=== PATIENT | female | born 1950 | race Caucasian/White ===

== ENCOUNTER 2021-06-12 13:50 | Emergency (ER) | payer MEDICARE, MEDICAID ==
[2021-06-12 14:26] LABS: #Eosinphils 0.1 10x3/uL (0.0-0.5); #Monocytes 0.9 10x3/uL (0.0-1.1); #Neutrophils 5.2 10x3/uL (1.5-8.4); %Basophils 0.1 % (0.0-2.0); %Eosinophils 1.2 % (0.0-6.0); %Lymphocytes 15.9 % (18.0-47.0); %Monocytes 11.9 % (0.0-10.0); %Neutrophils 70.6 % (40.0-75.0); Hemoglobin 10.7 g/dL (12.0-15.5); Mean Corpuscular HGB CONC 37.2 g/dL (32.0-36.0); Mean Corpuscular Hemoglobin 31.3 pg (27.0-33.0); Mean Corpuscular Volume 84.2 fl (81.6-98.3); Mean Platelet Volume 8.1 fl (7.4-10.4); Platelet Count 304 10x3/uL (150-450); RBC Distribution Width 11.9 % (11.5-14.5); Red Blood Cell (RBC) Count 3.42 10x6/uL (3.90-5.03); White Blood Cell (WBC) Count 7.3 10x3/uL (3.5-10.5)
[2021-06-12 14:38] LABS: ALT (SGPT) 18 U/L (8-55); AST (SGOT) 21 U/L (5-34); Albumin 3.9 g/dL (3.4-4.8); Alkaline Phosphatase 79 U/L (40-110); Anion Gap 12 mmol/L (10-20); BUN (Urea Nitrogen) 8 mg/dL (9.8-20.1); Bilirubin, Total 0.4 mg/dL (0.2-1.2); CK (CPK) 52 U/L (29-168); Calc. Creatinine Clearance 0 mL/min (70-130); Carbon Dioxide 22 mmol/L (23-31); Chloride 93 mmol/L (98-107); Globulin 2.2 g/dL (2.4-3.5); Glucose 127 mg/dL (83-110); Protein, Total 6.1 g/dL (5.8-8.1); Sodium 125 mmol/L (136-145)
[2021-06-12] MEDS ORDERED: Morphine 4 MG/ML VIAL ONE ×2 (14:41→20:31)
[2021-06-12] MEDS ORDERED: Ondansetron PF 4 MG/2 ML Vial ONE (14:41)
[2021-06-12] MEDS ORDERED: Boostrix 0.5 ML (Tdap) VIAL ONE (14:41)
[2021-06-12] MEDS ORDERED: Lidocaine 1% w/Epinephrine 1:100K 20 ML VIAL ONE (14:44)
[2021-06-12 14:54] LABS: Potassium 2.2 mmol/L (3.5-5.1)
[2021-06-12] MEDS ORDERED: Potassium Chloride 20 MEQ/100 ML PREMIX BAG ONE (15:51)
[2021-06-12 16:38] LABS: Bilirubin Neg (Negative); Blood, Urine 10 (Negative); Clarity Clear (Clear); Glucose, Urine (Dipstick) Normal (Negative); Ketone, Urine Negative (Negative); Leukocyte 500 (Negative); Nitrite Negative (Negative); Protein, Urine (Dipstick) 15 mg/dl (Neg-Trace); Urobilinogen Normal mg/dL (Less than 2); pH, Urine 6.5 (5.0-9.0)
[2021-06-12 16:44] LABS: SARS-CoV-2 NAA Rapid Test Not Detected (NotDetected)
[2021-06-12 16:48] LABS: RBC/HPF 0-3 HPF (0-3); Squamous Epithelial 0-3 HPF (0-3); WBC/HPF 21-50 HPF (0-3)
[2021-06-12 16:49] LABS: Bacteria/HPF 1+ HPF (None Seen)
[2021-06-12] MEDS ORDERED: Potassium Chloride 40 MEQ in Premix Bag 1 BAG IVPB SCH (21:00)
== END 2021-06-12 21:32 | disposition short-term general hospital (02) ==
LOC: CSHERS 13:50
DX: S01.81XA Laceration without foreign body of other part of head, initial encounter (principal); S06.2X0A Diffuse traumatic brain injury without loss of consciousness, initial encounter; E87.6 Hypokalemia; E87.1 Hypo-osmolality and hyponatremia; N39.0 Urinary tract infection, site not specified; I44.0 Atrioventricular block, first degree; I10 Essential (primary) hypertension; I25.10 Atherosclerotic heart disease of native coronary artery without angina pectoris; E78.5 Hyperlipidemia, unspecified; G93.41 Metabolic encephalopathy; W19.XXXA Unspecified fall, initial encounter; Z20.822 Contact with and (suspected) exposure to COVID-19; Z79.899 Other long term (current) drug therapy; Z23 Encounter for immunization
CPT/HCPCS: 70450; 70486; 71045; 72125; 73564; 80053; 82550; 84484; 85025; 90715; 93005; U0002; 12013; 36415; 81003; 81015; 90471; 96365; 96366; 96375; 96376; J2270; J2405; J3480

== ENCOUNTER 2021-07-22 03:35 | Observation (INO) | payer MEDICARE, MEDICAID ==
[2021-07-22 04:44] LABS: Actual Bicarbonate (HCO3v) 19 mEq/L (22-28); Base Excess -6.3 mEq/L (-2.0 to +3.0); Calcium, Ionized (venous) 1.17 mmol/L (1.16-1.32); Chloride (VBG) 103 mmol/L (98-106); Hemoglobin (Hb) 11.8 g/dL (11.7-16.1); Potassium (VBG) 3.48 mmol/L (3.70-5.30); Puncture Site Other Site; Sodium 131.8 mmol/L (133-146); pH (venous) 7.34 (7.32-7.43)
[2021-07-22 05:02] LABS: ALT (SGPT) 11 U/L (8-55); AST (SGOT) 15 U/L (5-34); Alkaline Phosphatase 68 U/L (40-110); Anion Gap 12 mmol/L (10-20); BUN (Urea Nitrogen) 8 mg/dL (9.8-20.1); Bilirubin, Total 0.5 mg/dL (0.2-1.2); Calc. Creatinine Clearance 0 mL/min (70-130); Calcium 9.1 mg/dL (7.8-10.44); Carbon Dioxide 19 mmol/L (23-31); Chloride 105 mmol/L (98-107); Globulin 2.4 g/dL (2.4-3.5); Glucose 116 mg/dL (83-110); Potassium 3.6 mmol/L (3.5-5.1); Protein, Total 6.4 g/dL (5.8-8.1); Sodium 132 mmol/L (136-145)
[2021-07-22 05:07] LABS: #Eosinphils 0.1 10x3/uL (0.0-0.5); #Monocytes 0.3 10x3/uL (0.0-1.1); #Neutrophils 4.8 10x3/uL (1.5-8.4); %Basophils 0.3 % (0.0-2.0); %Eosinophils 2.3 % (0.0-6.0); %Lymphocytes 11.7 % (18.0-47.0); %Monocytes 5.4 % (0.0-10.0); %Neutrophils 80.1 % (40.0-75.0); Hemoglobin 10.5 g/dL (12.0-15.5); Mean Corpuscular HGB CONC 32.9 g/dL (32.0-36.0); Mean Corpuscular Hemoglobin 31.2 pg (27.0-33.0); Mean Corpuscular Volume 94.7 fl (81.6-98.3); Platelet Count 262 10x3/uL (150-450); RBC Distribution Width 13.3 % (11.5-14.5); Red Blood Cell (RBC) Count 3.37 10x6/uL (3.90-5.03)
[2021-07-22 05:22] LABS: Bilirubin 1+ (Negative); Blood, Urine 25 (Negative); Clarity Cloudy (Clear); Glucose, Urine (Dipstick) Normal (Negative); Ketone, Urine Negative (Negative); Leukocyte 500 (Negative); Nitrite Negative (Negative); Protein, Urine (Dipstick) 30 mg/dl (Neg-Trace); Specific Gravity, Urine 1.025 (1.002-1.036); Urobilinogen Normal mg/dL (Less than 2)
[2021-07-22 05:28] LABS: WBC/HPF 21-50 HPF (0-3)
[2021-07-22 05:29] LABS: Bacteria/HPF 2+ HPF (None Seen); Yeast-Budding Rare HPF (None Seen)
[2021-07-22 05:31] LABS: Mucous/LPF 2+ LPF (<2+); Transitional Epithelial 0-3 HPF (None Seen)
[2021-07-22] MEDS ORDERED: Calcium Carbonate 500 MG ChewTAB PO PRN (05:33)
[2021-07-22] MEDS ORDERED: Senokot S 8.6-50 MG TAB PO PRN (05:33)
[2021-07-22] MEDS ORDERED: Ondansetron PF 4 MG/2 ML Vial IVP PRN (05:33)
[2021-07-22] MEDS ORDERED: Acetaminophen 325 MG TAB PO PRN (05:33)
[2021-07-22] MEDS ORDERED: hydrALAZINE 20 MG/ML VIAL SLOW IVP PRN (05:33)
[2021-07-22] MEDS ORDERED: traMADol HCl 50 MG TAB PO PRN (05:38)
[2021-07-22] MEDS ORDERED: Sodium Chloride 0.9% 1,000 ML IV SCH (05:45)
[2021-07-22] MEDS ORDERED: Adenosine 6 MG/2 ML VIAL ONE (05:53)
[2021-07-22] MEDS ORDERED: Metoprolol Tartrate 25 MG TAB ONE (05:58)
[2021-07-22] MEDS ORDERED: Potassium Chloride 20 MEQ TAB ONE (05:59)
[2021-07-22 06:13] LABS: SARS-CoV-2 NAA Rapid Test Not Detected (NotDetected)
[2021-07-22] MEDS ORDERED: cefTRIAXone\\ROCEPHIN 500 MG VIAL ONE (06:28)
[2021-07-22 06:29] LABS: Phosphorus 3.9 mg/dL (2.3-4.7)
[2021-07-22] MEDS ORDERED: cefTRIAXone\\ROCEPHIN 2 GM VIAL ONE (06:29)
[2021-07-22 06:35] LABS: CK (CPK) 39 U/L (29-168); Magnesium 1.8 mg/dL (1.6-2.6)
[2021-07-22] MEDS ORDERED: levETIRAcetam in NS 1,000 MG in Premix Bag 1 BAG IVPB SCH (09:00)
[2021-07-22] MEDS ORDERED: Cilostazol 100 MG TAB PO SCH (09:00)
[2021-07-22] MEDS ORDERED: Potassium Chloride 20 MEQ TAB PO SCH (09:00)
[2021-07-22] MEDS ORDERED: Metoprolol Tartrate 25 MG TAB PO SCH (09:00)
[2021-07-22] MEDS: Folic Acid 1 MG TAB PO SCH (10:29)
[2021-07-22] MEDS: Enoxaparin Sodium 40 MG/0.4 ML SYRINGE SC SCH (10:29)
[2021-07-22] MEDS: Venlafaxine HCl XR 75 MG CAP PO SCH (10:29)
[2021-07-22] MEDS: Multivitamin W/ Minerals 1 TAB PO SCH (10:30)
[2021-07-22] MEDS: Famotidine 20 MG TAB PO SCH ×2 (10:30→20:32)
[2021-07-22] MEDS: Clopidogrel Bisulfate 75 MG TAB PO SCH (10:30)
[2021-07-22] MEDS: Thiamine HCl 200 MG/2 ML VIAL SLOW IVP SCH (10:32)
[2021-07-22 11:01] VITALS: BMI 22.1
[2021-07-22 11:25] LABS: Bilirubin Neg (Negative); Blood, Urine Negative (Negative); Clarity Clear (Clear); Glucose, Urine (Dipstick) Normal (Negative); Ketone, Urine Negative (Negative); Leukocyte 100 (Negative); Nitrite Negative (Negative); Protein, Urine (Dipstick) Negative (Neg-Trace); Specific Gravity, Urine 1.005 (1.002-1.036); Urobilinogen Normal mg/dL (Less than 2); pH, Urine 6.5 (5.0-9.0)
[2021-07-22 11:32] LABS: Bacteria/HPF Rare-Few HPF (None Seen); RBC/HPF 0-3 HPF (0-3); Squamous Epithelial 0-3 HPF (0-3)
[2021-07-22] MEDS ORDERED: HYDROcodone/Acetaminophen 5/325 mg Tablet PO PRN (11:52)
[2021-07-22] MEDS: Loperamide HCl 2 MG CAP PO PRN ×2 (15:34→22:40)
[2021-07-22] MEDS: Cilostazol 100 MG TAB PO SCH (15:34)
[2021-07-22] MEDS: Cholestyramine/Aspartame 4 gm Packet PO SCH ×2 (16:40→20:32)
[2021-07-22] MEDS: Losartan 25 MG TAB PO SCH (20:31)
[2021-07-22] MEDS ORDERED: traZODone HCl 50 MG TAB PO SCH (21:00)
[2021-07-22] MEDS ORDERED: Melatonin 3 MG TAB PO SCH (21:00)
[2021-07-22] MEDS ORDERED: Atorvastatin Calcium 40 MG TAB PO SCH (21:00)
[2021-07-23 05:06] VITALS: BP 115/57; TEMP 98.2
[2021-07-23 05:46] LABS: #Eosinphils 0.2 10x3/uL (0.0-0.5); #Monocytes 0.4 10x3/uL (0.0-1.1); #Neutrophils 1.8 10x3/uL (1.5-8.4); %Basophils 0.5 % (0.0-2.0); %Eosinophils 5.8 % (0.0-6.0); %Lymphocytes 32.7 % (18.0-47.0); %Monocytes 10.7 % (0.0-10.0); Hemoglobin 9.7 g/dL (12.0-15.5); Mean Corpuscular HGB CONC 33.8 g/dL (32.0-36.0); Mean Corpuscular Hemoglobin 31.7 pg (27.0-33.0); Mean Corpuscular Volume 93.8 fl (81.6-98.3); Mean Platelet Volume 8.9 fl (7.4-10.4); Platelet Count 231 10x3/uL (150-450); RBC Distribution Width 13.5 % (11.5-14.5); Red Blood Cell (RBC) Count 3.06 10x6/uL (3.90-5.03); White Blood Cell (WBC) Count 3.6 10x3/uL (3.5-10.5)
[2021-07-23 06:17] LABS: Anion Gap 9 mmol/L (10-20); BUN (Urea Nitrogen) 4 mg/dL (9.8-20.1); Calc. Creatinine Clearance 72 mL/min (70-130); Calcium 8.6 mg/dL (7.8-10.44); Carbon Dioxide 18 mmol/L (23-31); Cardiac Risk 4.5 (Less than 4.5); Chloride 112 mmol/L (98-107); Cholesterol 259 mg/dl (< 200 Desired); Glucose 98 mg/dL (83-110); HDL Cholesterol 58 mg/dL (>60 Neg Risk); LDL Cholesterol, Calculated 180 mg/dL; Potassium 3.2 mmol/L (3.5-5.1); Sodium 136 mmol/L (136-145); Triglycerides 103 mg/dL (Less than 150)
[2021-07-23] MEDS: Venlafaxine HCl XR 75 MG CAP PO SCH (07:50)
[2021-07-23] MEDS: Multivitamin W/ Minerals 1 TAB PO SCH (07:51)
[2021-07-23] MEDS: Famotidine 20 MG TAB PO SCH (07:51)
[2021-07-23] MEDS: Folic Acid 1 MG TAB PO SCH (07:51)
[2021-07-23] MEDS: Cilostazol 100 MG TAB PO SCH (07:51)
[2021-07-23] MEDS: Losartan 25 MG TAB PO SCH (07:52)
[2021-07-23] MEDS: Clopidogrel Bisulfate 75 MG TAB PO SCH (07:52)
[2021-07-23] MEDS: Thiamine HCl 200 MG/2 ML VIAL SLOW IVP SCH (07:53)
[2021-07-23] MEDS: Enoxaparin Sodium 40 MG/0.4 ML SYRINGE SC SCH (07:53)
[2021-07-23] MEDS: Cholestyramine/Aspartame 4 gm Packet PO SCH (07:57)
[2021-07-23] MEDS ORDERED: Potassium Chloride 10 MEQ TAB PO SCH (09:00)
[2021-07-23] MEDS ORDERED: Potassium Chloride 20 MEQ TAB PO SCH (09:00)
[2021-07-23] MEDS ORDERED: Aspirin 81 mg Enteric Coated Tablet PO SCH (09:00)
[2021-07-23] MEDS ORDERED: Amlodipine 5 MG TAB PO SCH (09:00)
== END 2021-07-23 10:48 ==
LOC: SUATTDRO 03:35 → CSHERS 03:35 → INTOOBSV 07:52 → CSHTELE 07:52
PROVIDERS: ADMIT Family Medicine; ATTEND Family Medicine
DX: G45.9 Transient cerebral ischemic attack, unspecified (principal); I47.1 Supraventricular tachycardia; I12.9 Hypertensive chronic kidney disease with stage 1 through stage 4 chronic kidney disease, or unspecified chronic kidney disease; N18.2 Chronic kidney disease, stage 2 (mild); D63.1 Anemia in chronic kidney disease; E78.2 Mixed hyperlipidemia; I73.9 Peripheral vascular disease, unspecified; F10.21 Alcohol dependence, in remission; R29.6 Repeated falls; F03.90 Unspecified dementia, unspecified severity, without behavioral disturbance, psychotic disturbance, mood disturbance, and anxiety; F17.200 Nicotine dependence, unspecified, uncomplicated; R19.7 Diarrhea, unspecified; Z79.02 Long term (current) use of antithrombotics/antiplatelets; Z79.899 Other long term (current) drug therapy; Z88.1 Allergy status to other antibiotic agents; Z20.822 Contact with and (suspected) exposure to COVID-19
CPT/HCPCS: 36415; 70450; 70551; 71045; 80048; 80053; 80061; 81003; 81015; 82274; 82550; 82805; 83605; 83630; 83735; 84100; 84146; 84443; 84484; 85025; 87045; 87046; 87081; 87086; 87324; 87427; 87449; 93005; 93010; 93306; 93880; J0153; J0696; J1650; J1953; J3411; J7050; U0002

== ENCOUNTER 2021-10-19 07:44 | Inpatient (IN) | payer MEDICARE, MEDICAID ==
[2021-10-19 09:49] LABS: #Eosinphils 0.1 10x3/uL (0.0-0.5); #Monocytes 0.6 10x3/uL (0.0-1.1); #Neutrophils 9.9 10x3/uL (1.5-8.4); %Basophils 0.2 % (0.0-2.0); %Eosinophils 0.8 % (0.0-6.0); %Lymphocytes 7.2 % (18.0-47.0); %Monocytes 5.2 % (0.0-10.0); %Neutrophils 86.3 % (40.0-75.0); Hemoglobin 10.4 g/dL (12.0-15.5); Mean Corpuscular HGB CONC 34.7 g/dL (32.0-36.0); Mean Corpuscular Hemoglobin 31.5 pg (27.0-33.0); Mean Corpuscular Volume 90.9 fl (81.6-98.3); Platelet Count 290 10x3/uL (150-450); RBC Distribution Width 12.7 % (11.5-14.5); White Blood Cell (WBC) Count 11.5 10x3/uL (3.5-10.5)
[2021-10-19 10:00] LABS: Prothrombin Time 10.8 sec (9.5-12.1)
[2021-10-19 10:04] LABS: ALT (SGPT) 9 U/L (8-55); AST (SGOT) 14 U/L (5-34); Albumin 3.8 g/dL (3.4-4.8); Alkaline Phosphatase 75 U/L (40-110); Anion Gap 12 mmol/L (10-20); BUN (Urea Nitrogen) 5 mg/dL (9.8-20.1); Bilirubin, Total 0.3 mg/dL (0.2-1.2); Calc. Creatinine Clearance 0 mL/min (70-130); Calcium 8.6 mg/dL (7.8-10.44); Carbon Dioxide 20 mmol/L (23-31); Chloride 98 mmol/L (98-107); Globulin 2.5 g/dL (2.4-3.5); Glucose 99 mg/dL (83-110); Protein, Total 6.3 g/dL (5.8-8.1); Sodium 126 mmol/L (136-145)
[2021-10-19 10:47] LABS: Bilirubin Neg (Negative); Blood, Urine 150 (Negative); Clarity Slightly Cloudy (Clear); Glucose, Urine (Dipstick) Normal (Negative); Ketone, Urine Negative (Negative); Leukocyte 500 (Negative); Nitrite Negative (Negative); Protein, Urine (Dipstick) 15 mg/dl (Neg-Trace); Urobilinogen Normal mg/dL (Less than 2)
[2021-10-19 10:52] LABS: SARS-CoV-2 NAA Rapid Test Not Detected (NotDetected)
[2021-10-19 11:19] LABS: Bacteria/HPF 2+ HPF (None Seen)
[2021-10-19 13:15] LABS: Sodium 127 mmol/L (136-145)
[2021-10-19] MEDS ORDERED: Ondansetron PF 4 MG/2 ML Vial IVP PRN (14:24)
[2021-10-19] MEDS ORDERED: Ondansetron ODT 4 MG TAB PO PRN (14:24)
[2021-10-19] MEDS ORDERED: Acetaminophen 650 MG Suppository PR PRN (14:24)
[2021-10-19] MEDS ORDERED: hydrALAZINE 20 MG/ML VIAL SLOW IVP PRN (14:24)
[2021-10-19] MEDS ORDERED: Sodium Chloride 0.9% 1,000 ML IV SCH (14:30)
[2021-10-19 14:34] VITALS: BMI 19.8
[2021-10-19] MEDS: Acetaminophen 325 MG TAB PO PRN ×2 (15:35→22:01)
[2021-10-19 15:36] LABS: Potassium, Urine 56.3 mmol/L
[2021-10-19 18:33] LABS: Sodium 127 mmol/L (136-145)
[2021-10-19] MEDS ORDERED: Atorvastatin Calcium 40 MG TAB PO SCH (21:00)
[2021-10-19] MEDS: Atorvastatin Calcium 40 MG TAB PO SCH (22:01)
[2021-10-20 00:16] LABS: Sodium 128 mmol/L (136-145)
[2021-10-20 04:31] LABS: #Eosinphils 0.2 10x3/uL (0.0-0.5); #Monocytes 0.5 10x3/uL (0.0-1.1); #Neutrophils 3.6 10x3/uL (1.5-8.4); %Basophils 0.5 % (0.0-2.0); %Eosinophils 4.3 % (0.0-6.0); %Lymphocytes 22.3 % (18.0-47.0); %Monocytes 8.9 % (0.0-10.0); %Neutrophils 63.6 % (40.0-75.0); Hemoglobin 10.2 g/dL (12.0-15.5); Mean Corpuscular Hemoglobin 31.4 pg (27.0-33.0); Mean Corpuscular Volume 92.3 fl (81.6-98.3); Mean Platelet Volume 8.3 fl (7.4-10.4); Platelet Count 284 10x3/uL (150-450); Red Blood Cell (RBC) Count 3.25 10x6/uL (3.90-5.03); White Blood Cell (WBC) Count 5.6 10x3/uL (3.5-10.5)
[2021-10-20 04:33] LABS: Anion Gap 13 mmol/L (10-20); BUN (Urea Nitrogen) 5 mg/dL (9.8-20.1); Calc. Creatinine Clearance 71 mL/min (70-130); Carbon Dioxide 21 mmol/L (23-31); Cardiac Risk 2.4 (Less than 4.5); Chloride 101 mmol/L (98-107); Cholesterol 165 mg/dl (< 200 Desired); Glucose 89 mg/dL (83-110); HDL Cholesterol 70 mg/dL (>60 Neg Risk); LDL Cholesterol, Calculated 82 mg/dL; Potassium 3.5 mmol/L (3.5-5.1); Sodium 131 mmol/L (136-145); Triglycerides 64 mg/dL (Less than 150)
[2021-10-20 06:27] LABS: Sodium 132 mmol/L (136-145)
[2021-10-20] MEDS: Aspirin 81 mg Enteric Coated Tablet PO SCH (09:46)
[2021-10-20] MEDS: Clopidogrel Bisulfate 75 MG TAB PO SCH (09:46)
[2021-10-20] MEDS: Acetaminophen 325 MG TAB PO PRN (09:54)
[2021-10-20 13:13] LABS: Sodium 130 mmol/L (136-145)
[2021-10-20] MEDS: Sodium Chloride 0.9% 1,000 ML IV SCH (17:59)
[2021-10-20] MEDS: Cefepime 2 GM in Sodium Chloride 0.9% 100 ML IVPB SCH (20:47)
[2021-10-20] MEDS: Atorvastatin Calcium 40 MG TAB PO SCH (20:48)
[2021-10-21 04:25] LABS: Anion Gap 13 mmol/L (10-20); BUN (Urea Nitrogen) 6 mg/dL (9.8-20.1); Calc. Creatinine Clearance 78 mL/min (70-130); Calcium 9.1 mg/dL (7.8-10.44); Carbon Dioxide 21 mmol/L (23-31); Chloride 102 mmol/L (98-107); Glucose 112 mg/dL (83-110); Potassium 3.6 mmol/L (3.5-5.1); Sodium 132 mmol/L (136-145)
[2021-10-21 04:26] LABS: #Eosinphils 0.3 10x3/uL (0.0-0.5); #Monocytes 0.6 10x3/uL (0.0-1.1); #Neutrophils 5.8 10x3/uL (1.5-8.4); %Basophils 0.3 % (0.0-2.0); %Eosinophils 3.5 % (0.0-6.0); %Lymphocytes 13.7 % (18.0-47.0); %Monocytes 7.6 % (0.0-10.0); %Neutrophils 74.5 % (40.0-75.0); Hemoglobin 10.7 g/dL (12.0-15.5); Iron 31 ug/dL (50-170); Iron Binding Capacity, Total 246 mcg/dL (265-497); Mean Corpuscular HGB CONC 34.5 g/dL (32.0-36.0); Mean Corpuscular Hemoglobin 31.8 pg (27.0-33.0); Mean Platelet Volume 8.2 fl (7.4-10.4); Platelet Count 269 10x3/uL (150-450); Red Blood Cell (RBC) Count 3.37 10x6/uL (3.90-5.03); White Blood Cell (WBC) Count 7.7 10x3/uL (3.5-10.5)
[2021-10-21] MEDS ORDERED: Cefepime 2 GM VIAL ONE (08:31)
[2021-10-21] MEDS: Clopidogrel Bisulfate 75 MG TAB PO SCH (10:38)
[2021-10-21] MEDS: Aspirin 81 mg Enteric Coated Tablet PO SCH (10:38)
[2021-10-21] MEDS: Sodium Chloride 0.9% 1,000 ML IV SCH (10:39)
[2021-10-21] MEDS: Cefepime 2 GM in Sodium Chloride 0.9% 100 ML IVPB SCH (10:39)
[2021-10-21 12:36] VITALS: BP 130/73; TEMP 99.2
== END 2021-10-21 17:00 | disposition home or self-care (01) | DRG 641 ==
LOC: CSHERS 07:44 → OBSVTOIN 12:25 → CSHTELE 12:25
PROVIDERS: ADMIT Family Medicine; ATTEND Internal Medicine
DX: E86.0 Dehydration (principal); S06.0X1A Concussion with loss of consciousness of 30 minutes or less, initial encounter; I50.22 Chronic systolic (congestive) heart failure; N39.0 Urinary tract infection, site not specified; R55 Syncope and collapse; E87.1 Hypo-osmolality and hyponatremia; E87.2 Acidosis; I11.0 Hypertensive heart disease with heart failure; I73.9 Peripheral vascular disease, unspecified; D63.1 Anemia in chronic kidney disease; Z20.822 Contact with and (suspected) exposure to COVID-19; I25.10 Atherosclerotic heart disease of native coronary artery without angina pectoris; E78.2 Mixed hyperlipidemia; W19.XXXA Unspecified fall, initial encounter; S00.01XA Abrasion of scalp, initial encounter; E87.6 Hypokalemia; E88.09 Other disorders of plasma-protein metabolism, not elsewhere classified; Z88.1 Allergy status to other antibiotic agents; Z79.02 Long term (current) use of antithrombotics/antiplatelets; Z87.891 Personal history of nicotine dependence; Z79.899 Other long term (current) drug therapy; Z79.82 Long term (current) use of aspirin; Z98.890 Other specified postprocedural states
CPT/HCPCS: 0439T; 36415; 70450; 70551; 71045; 72125; 80048; 80053; 80061; 81003; 81015; 82436; 82728; 83540; 83550; 83605; 83930; 83935; 84133; 84295; 84300; 84484; 84560; 85025; 85610; 87077; 87086; 87186; 93005; 93306; 94760; G0378; J0692; J3490; J7050; U0002

== ENCOUNTER 2022-03-05 10:50 | Emergency (ER) | payer OTHER, MEDICARE ==
[2022-03-05 11:40] LABS: Bilirubin Neg (Negative); Blood, Urine 10 (Negative); Clarity Clear (Clear); Glucose, Urine (Dipstick) Normal (Negative); Ketone, Urine Negative (Negative); Leukocyte Negative (Negative); Nitrite Negative (Negative); Protein, Urine (Dipstick) Negative (Neg-Trace); Specific Gravity, Urine 1.005 (1.002-1.036); Urobilinogen Normal mg/dL (Less than 2)
[2022-03-05 11:44] LABS: #Eosinphils 0.1 10x3/uL (0.0-0.5); #Monocytes 0.7 10x3/uL (0.0-1.1); #Neutrophils 5.6 10x3/uL (1.5-8.4); %Basophils 0.5 % (0.0-2.0); %Eosinophils 0.9 % (0.0-6.0); %Lymphocytes 20.5 % (18.0-47.0); %Monocytes 8.3 % (0.0-10.0); %Neutrophils 69.6 % (40.0-75.0); Hemoglobin 12.2 g/dL (12.0-15.5); Mean Corpuscular HGB CONC 34.5 g/dL (32.0-36.0); Mean Corpuscular Hemoglobin 31.8 pg (27.0-33.0); Mean Corpuscular Volume 92.2 fl (81.6-98.3); Mean Platelet Volume 8.3 fl (7.4-10.4); Platelet Count 334 10x3/uL (150-450); RBC Distribution Width 12.3 % (11.5-14.5); Red Blood Cell (RBC) Count 3.84 10x6/uL (3.90-5.03)
[2022-03-05 11:50] LABS: Bacteria/HPF None Seen HPF (None Seen); RBC/HPF 0-3 HPF (0-3); Squamous Epithelial None Seen HPF (0-3); WBC/HPF None Seen HPF (0-3)
[2022-03-05 11:57] LABS: ALT (SGPT) 17 U/L (8-55); AST (SGOT) 18 U/L (5-34); Albumin 4.2 g/dL (3.4-4.8); Alkaline Phosphatase 67 U/L (40-110); Anion Gap 14 mmol/L (10-20); BUN (Urea Nitrogen) 7 mg/dL (9.8-20.1); Bilirubin, Total 0.3 mg/dL (0.2-1.2); CK (CPK) 98 U/L (29-168); Calc. Creatinine Clearance 0 mL/min (70-130); Calcium 9.5 mg/dL (7.8-10.44); Carbon Dioxide 29 mmol/L (23-31); Chloride 100 mmol/L (98-107); Estimated GFR 87; Globulin 3.1 g/dL (2.4-3.5); Glucose 103 mg/dL (83-110); Protein, Total 7.3 g/dL (5.8-8.1); Sodium 140 mmol/L (136-145)
[2022-03-05 12:00] LABS: Potassium 2.8 mmol/L (3.5-5.1)
[2022-03-05] MEDS ORDERED: Potassium Chloride 20 MEQ TAB ONE (12:24)
[2022-03-05] MEDS ORDERED: Potassium Chloride 20 MEQ/100 ML PREMIX BAG ONE (13:22)
== END 2022-03-05 15:00 | disposition home or self-care (01) ==
LOC: CSHERS 10:50
DX: E87.6 Hypokalemia (principal); R56.9 Unspecified convulsions; E78.5 Hyperlipidemia, unspecified; E87.1 Hypo-osmolality and hyponatremia; I10 Essential (primary) hypertension; I25.10 Atherosclerotic heart disease of native coronary artery without angina pectoris
CPT/HCPCS: 36415; 70450; 72125; 80053; 81003; 81015; 82550; 83605; 85025; 93005; 96365; 96366; J3480

== ENCOUNTER 2022-05-31 11:30 | Observation (INO) | payer MEDICARE, OTHER ==
[2022-05-31 12:10] LABS: #Eosinphils 0.2 10x3/uL (0.0-0.5); #Monocytes 0.4 10x3/uL (0.0-1.1); #Neutrophils 6.8 10x3/uL (1.5-8.4); %Basophils 0.5 % (0.0-2.0); %Eosinophils 1.8 % (0.0-6.0); %Lymphocytes 9.9 % (18.0-47.0); %Monocytes 5.3 % (0.0-10.0); Hemoglobin 11.9 g/dL (12.0-15.5); Mean Corpuscular HGB CONC 33.1 g/dL (32.0-36.0); Mean Corpuscular Hemoglobin 32.1 pg (27.0-33.0); Mean Platelet Volume 8.4 fl (7.4-10.4); Platelet Count 262 10x3/uL (150-450); RBC Distribution Width 12.7 % (11.5-14.5); Red Blood Cell (RBC) Count 3.71 10x6/uL (3.90-5.03); White Blood Cell (WBC) Count 8.3 10x3/uL (3.5-10.5)
[2022-05-31 12:29] LABS: ALT (SGPT) 19 U/L (8-55); AST (SGOT) 19 U/L (5-34); Albumin 4.3 g/dL (3.4-4.8); Alkaline Phosphatase 59 U/L (40-110); Anion Gap 11 mmol/L (10-20); BUN (Urea Nitrogen) 9 mg/dL (9.8-20.1); Bilirubin, Total 0.2 mg/dL (0.2-1.2); Calc. Creatinine Clearance 0 mL/min (70-130); Calcium 9.5 mg/dL (7.8-10.44); Carbon Dioxide 29 mmol/L (23-31); Chloride 93 mmol/L (98-107); Estimated GFR 88; Globulin 2.8 g/dL (2.4-3.5); Glucose 120 mg/dL (83-110); Protein, Total 7.1 g/dL (5.8-8.1); Sodium 129 mmol/L (136-145)
[2022-05-31 14:45] LABS: Bilirubin Neg (Negative); Blood, Urine 10 (Negative); Clarity Clear (Clear); Glucose, Urine (Dipstick) Normal (Negative); Ketone, Urine Negative (Negative); Leukocyte Negative (Negative); Nitrite Negative (Negative); Protein, Urine (Dipstick) 30 mg/dl (Neg-Trace); Specific Gravity, Urine 1.015 (1.005-1.030); Urobilinogen Normal mg/dL (Less than 2)
[2022-05-31 14:56] LABS: Bacteria/HPF None Seen HPF (None Seen); RBC/HPF 0-3 HPF (0-3); Squamous Epithelial 0-3 HPF (0-3); WBC/HPF None Seen HPF (0-3)
[2022-05-31] MEDS ORDERED: Acetaminophen 650 MG Suppository PR PRN (16:47)
[2022-05-31] MEDS ORDERED: Guaifenesin DM 100-10/5 ML UDCUP PO PRN (16:47)
[2022-05-31] MEDS ORDERED: Acetaminophen 325 MG TAB PO PRN (16:47)
[2022-05-31] MEDS ORDERED: Ondansetron PF 4 MG/2 ML Vial IVP PRN (16:47)
[2022-05-31] MEDS ORDERED: Ondansetron ODT 4 MG TAB PO PRN (16:47)
[2022-05-31 16:57] LABS: Troponin I Less than 0.010 ng/mL (< 0.028)
[2022-05-31 18:25] VITALS: BMI 21.1
[2022-05-31] MEDS ORDERED: FLU VACC QS2022-23(65YR UP)/PF 240 MCG/0.7 ML SYRINGE IM ONE (19:15)
[2022-05-31 19:27] LABS: SARS-CoV-2 NAA Rapid Test Not Detected (NotDetected)
[2022-05-31 19:49] LABS: Troponin I Less than 0.010 ng/mL (< 0.028)
[2022-05-31] MEDS: Famotidine 20 MG TAB PO SCH (20:33)
[2022-05-31] MEDS ORDERED: Atorvastatin Calcium 40 MG TAB PO SCH (21:00)
[2022-05-31] MEDS: Sodium Chloride 1 GM TAB PO SCH (21:29)
[2022-05-31] MEDS ORDERED: Melatonin 3 MG TAB PO PRN (22:12)
[2022-06-01 06:46] LABS: #Eosinphils 0.3 10x3/uL (0.0-0.5); #Monocytes 0.6 10x3/uL (0.0-1.1); #Neutrophils 4.6 10x3/uL (1.5-8.4); %Basophils 0.6 % (0.0-2.0); %Lymphocytes 19.7 % (18.0-47.0); %Monocytes 9.1 % (0.0-10.0); %Neutrophils 66.2 % (40.0-75.0); Hemoglobin 12.6 g/dL (12.0-15.5); Mean Corpuscular HGB CONC 33.3 g/dL (32.0-36.0); Mean Corpuscular Hemoglobin 32.6 pg (27.0-33.0); Mean Corpuscular Volume 97.7 fl (81.6-98.3); Mean Platelet Volume 8.5 fl (7.4-10.4); Platelet Count 264 10x3/uL (150-450); RBC Distribution Width 12.8 % (11.5-14.5); Red Blood Cell (RBC) Count 3.87 10x6/uL (3.90-5.03)
[2022-06-01 07:10] LABS: Anion Gap 13 mmol/L (10-20); BUN (Urea Nitrogen) 10 mg/dL (9.8-20.1); Calc. Creatinine Clearance 62 mL/min (70-130); Calcium 9.6 mg/dL (7.8-10.44); Carbon Dioxide 28 mmol/L (23-31); Chloride 94 mmol/L (98-107); Estimated GFR 88; Glucose 92 mg/dL (83-110); Potassium 4.2 mmol/L (3.5-5.1); Sodium 131 mmol/L (136-145)
[2022-06-01] MEDS: Sodium Chloride 1 GM TAB PO SCH (08:29)
[2022-06-01] MEDS: Famotidine 20 MG TAB PO SCH (08:30)
[2022-06-01] MEDS ORDERED: Clopidogrel Bisulfate 75 MG TAB PO SCH (09:00)
[2022-06-01] MEDS ORDERED: Aspirin 81 mg Enteric Coated Tablet PO SCH (09:00)
[2022-06-01] MEDS ORDERED: Folic Acid 1 MG TAB PO SCH (09:00)
[2022-06-01] MEDS ORDERED: Amlodipine 5 MG TAB PO SCH (09:00)
[2022-06-01 15:44] VITALS: BP 138/64; TEMP 98
== END 2022-06-01 18:15 ==
LOC: CSHERS 11:30 → CSHTELE 17:24
PROVIDERS: ADMIT Family Medicine; ATTEND Family Medicine
DX: R56.9 Unspecified convulsions (principal); I11.0 Hypertensive heart disease with heart failure; I50.20 Unspecified systolic (congestive) heart failure; E78.5 Hyperlipidemia, unspecified; I73.9 Peripheral vascular disease, unspecified; R00.0 Tachycardia, unspecified; E87.1 Hypo-osmolality and hyponatremia; I25.10 Atherosclerotic heart disease of native coronary artery without angina pectoris; Z86.73 Personal history of transient ischemic attack (TIA), and cerebral infarction without residual deficits; Z20.822 Contact with and (suspected) exposure to COVID-19; Z79.02 Long term (current) use of antithrombotics/antiplatelets; Z79.899 Other long term (current) drug therapy; Z88.1 Allergy status to other antibiotic agents; Z79.82 Long term (current) use of aspirin
CPT/HCPCS: 70450; 80048; 80053; 83880; 84146; 84484 ×2; 85025 ×2; 93005; 94760 ×2; 97116; 97535; 99285; G0378 ×3; U0002; 36415; 81003; 81015; 93010

== ENCOUNTER 2023-10-30 13:03 | Outpatient (CLI) | payer MEDICARE, MEDICAID | END 2023-10-30 13:04 | disposition home or self-care (01) | LOC: CSHMRI 13:03 | PROVIDERS: ATTEND Psychiatry & Neurology Neurology | DX: R56.9 Unspecified convulsions (principal); I67.89 Other cerebrovascular disease | CPT/HCPCS: 70551 ==

== ENCOUNTER 2024-03-10 08:13 | Outpatient (CLI) | payer MEDICARE, MEDICAID ==
[2024-03-10] MEDS ORDERED: Iopamidol 300 61% 100 ML VIAL FS ONE (14:39)
== END 2024-03-10 08:14 | disposition home or self-care (01) ==
LOC: CSHCT 08:13
PROVIDERS: ATTEND Physician Assistant Medical
DX: K52.832 Lymphocytic colitis (principal); R19.7 Diarrhea, unspecified; R63.4 Abnormal weight loss; R19.5 Other fecal abnormalities
CPT/HCPCS: 74178; 82565; Q9967